=== PATIENT | male | born 1990 | race Caucasian/White ===

== ENCOUNTER 2023-08-15 00:14 | Observation (INO) | payer SELFPAY ==
[2023-08-15] VITALS (9 sets, daily range): BP systolic 127–146; BP diastolic 73–93; TEMP 97.9–99; O2SAT 93–98
[~2023-08-15] VITALS: Ht 177.8 cm; Wt 107.5 kg
[2023-08-15] MEDS: ONDANSETRON 4MG 2ML VIAL IV ONE (01:09)
[2023-08-15] MEDS: fentaNYL 100 MCG/2 ML INJECTION IV ONE ×3 (01:10→03:24)
[2023-08-15 01:18] LABS: HEMOGLOBIN 14.8 g/dl (13.5-17.5); MEAN CORPUSCULAR HEMOGLOBIN 28.8 pg (27.0-33.0); MEAN CORPUSCULAR HGB CONC 33.6 g/dl (32.0-36.5); MEAN CORPUSCULAR VOLUME 85.6 fl (80.0-96.0); PLATELET COUNT, AUTOMATED 334 10^3/uL (150-450); RED BLOOD COUNT 5.14 10^6/uL (4.30-6.10); WHITE BLOOD COUNT 14.4 10^3/uL (4.0-10.0)
[2023-08-15 01:30] LABS: INR 0.89; PARTIAL THROMBOPLASTIN TIME 24.7 SECONDS (24.8-34.2); PROTHROMBIN TIME 11.7 SECONDS (12.5-14.5)
[2023-08-15 01:43] LABS: ETHYL ALCOHOL (ETHANOL) 0.196 % (0.000-0.010)
[2023-08-15 01:45] LABS: BLOOD UREA NITROGEN 11 MG/DL (9-23); CALCIUM LEVEL 8.8 MG/DL (8.5-10.1); CARBON DIOXIDE LEVEL 23 MMOL/L (20-31); CHLORIDE LEVEL 104 MMOL/L (98-107); GLOMERULAR FILTRATION RATE > 60.0 (>60); GLUCOSE, FASTING 84 MG/DL (60-100); POTASSIUM SERUM 3.7 MMOL/L (3.5-5.1); SODIUM LEVEL 138 MMOL/L (136-145)
[2023-08-15] MEDS: NS 1,000 ML IV SCH (02:47)
[2023-08-15] MEDS ORDERED: HOME MED LIST COMPLETE! XX SCH (03:55)
[2023-08-15] MEDS ORDERED: ONDANSETRON 4MG 2ML VIAL IV PRN (04:55)
[2023-08-15] MEDS: LR 1,000 ML IV SCH ×2 (05:15→22:46)
[2023-08-15] MEDS: MORPHINE 2 MG/ML 1ML VIAL IV PRN (05:17)
[2023-08-15 07:32] LABS: AMPHETAMINES LEVEL URINE NEGATIVE (NEGATIVE); BARBITURATES URINE NEGATIVE (NEGATIVE); BENZODIAZEPINES URINE NEGATIVE (NEGATIVE); COCAINE METABOLITE URINE NEGATIVE (NEGATIVE); METHADONE URINE NEGATIVE (NEGATIVE); PHENCYCLIDINE URINE NEGATIVE (NEGATIVE)
[2023-08-15] MEDS: FOLIC ACID 1MG TAB PO SCH (07:36)
[2023-08-15] MEDS: THIAMINE 100 MG TAB PO SCH (07:37)
[2023-08-15] MEDS: MULTIVITAMINS/MINERALS THERAP 1 TAB PO SCH (07:37)
[2023-08-15 07:38] LABS: CANNABINOIDS URINE POSITIVE (NEGATIVE); OPIATES URINE POSITIVE (NEGATIVE)
[2023-08-15] MEDS: KETOROLAC 30 MG/ML 1ML VIAL IV PRN (11:43)
[2023-08-15] MEDS ORDERED: LIDOCAINE 2% 100MG/5ML SDV (FOR ANES.) As Ordered ONE (16:15)
[2023-08-15] MEDS ORDERED: ONDANSETRON 4MG 2ML VIAL As Ordered ONE (16:15)
[2023-08-15] MEDS ORDERED: MIDAZOLAM INJ 2MG/2ML VIAL As Ordered ONE (16:15)
[2023-08-15] MEDS ORDERED: fentaNYL 250 MCG/5 ML INJECTION As Ordered ONE (16:15)
[2023-08-15] MEDS ORDERED: SUGAMMADEX SODIUM 500 MG/5 ML VIAL (BRIDION) As Ordered ONE (16:15)
[2023-08-15] MEDS ORDERED: METOCLOPRAMIDE INJ 10MG/2ML VIAL As Ordered ONE (16:15)
[2023-08-15] MEDS ORDERED: KETOROLAC 60MG 2ML VIAL As Ordered ONE (16:15)
[2023-08-15] MEDS ORDERED: ROCURONIUM BROMIDE 50MG/5ML VIAL As Ordered ONE (16:15)
[2023-08-15] MEDS ORDERED: propofoL 200 MG/20 ML VIAL As Ordered ONE (16:15)
[2023-08-15] MEDS ORDERED: HYDROmorphone HCL 2MG/ML 1ML VIAL As Ordered ONE (16:15)
[2023-08-15] MEDS ORDERED: ACETAMINOPHEN 1000MG 100ML IV BAG As Ordered ONE (16:15)
[2023-08-15] MEDS ORDERED: dexmedeTOMIDine (4MCG/ML)200MCG/50ML BTL (PRECEDEX) As Ordered ONE (16:15)
[2023-08-15] MEDS ORDERED: DESFLURANE 240 ML INHALANT As Ordered ONE (16:15)
[2023-08-15] MEDS: ceFAZolin 2 GM/D5W 50 ML IV BAG As Ordered ONE (16:17)
[2023-08-15] MEDS: TRANEXAMIC ACID 100 MG/ML 10ML VIAL As Ordered ONE (16:47)
[2023-08-15] MEDS ORDERED: LABETALOL 100MG/20ML VIAL As Ordered ONE (16:53)
[2023-08-15] MEDS: VANCOMYCIN 1000MG/20ML VIAL As Ordered ONE (18:11)
[2023-08-15] MEDS ORDERED: oxyCODONE 5MG TAB PO PRN (19:10)
[2023-08-15] MEDS ORDERED: fentaNYL 100 MCG/2 ML INJECTION IV PRN (19:10)
[2023-08-15] MEDS: ONDANSETRON 4MG 2ML VIAL IV PRN (19:17)
[2023-08-15] MEDS: PROMETHAZINE 25MG/ML 1ML VIAL IV PRN (19:31)
[2023-08-15] MEDS: HEPARIN SOD (PORCINE) 5000UNITS/ML 1ML VIAL/SYRINGE SC SCH (23:54)
[2023-08-16 00:15] VITALS: BP 137/75; TEMP 98.1; O2SAT 94
[2023-08-16 01:15] VITALS: BP 135/79; TEMP 97.9; O2SAT 94
[2023-08-16 06:15] VITALS: BP 147/86; TEMP 98; O2SAT 94
[2023-08-16 07:11] LABS: HEMATOCRIT 38.8 % (42.0-52.0); MEAN CORPUSCULAR HEMOGLOBIN 28.4 pg (27.0-33.0); PLATELET COUNT, AUTOMATED 282 10^3/uL (150-450); RED BLOOD COUNT 4.51 10^6/uL (4.30-6.10); WHITE BLOOD COUNT 17.3 10^3/uL (4.0-10.0)
[2023-08-16 07:12] LABS: HEMOGLOBIN 12.8 g/dl (13.5-17.5)
[2023-08-16 07:23] LABS: ALBUMIN 3.1 G/DL (3.2-5.2); ALKALINE PHOSPHATASE 49 U/L (46-116); ALT/SGPT 35 U/L (7.0-40); AST/SGOT 35 U/L (<34); BILIRUBIN,TOTAL 0.7 MG/DL (0.3-1.2); BLOOD UREA NITROGEN 9 MG/DL (9-23); CALCIUM LEVEL 8.6 MG/DL (8.5-10.1); CARBON DIOXIDE LEVEL 29 MMOL/L (20-31); CHLORIDE LEVEL 104 MMOL/L (98-107); CREATININE FOR GFR 0.95 MG/DL (0.70-1.30); GLOMERULAR FILTRATION RATE > 60.0 (>60); GLUCOSE, FASTING 103 MG/DL (60-100); POTASSIUM SERUM 4.1 MMOL/L (3.5-5.1); SODIUM LEVEL 138 MMOL/L (136-145); TOTAL PROTEIN 5.9 G/DL (5.7-8.2)
[2023-08-16] MEDS: ASPIRIN 81MG ENTERIC TABLET PO SCH (08:18)
[2023-08-16 11:02] VITALS: BP 147/88; TEMP 97.7; O2SAT 98
[2023-08-16] MEDS ORDERED: ASPI81TAEC PO (12:14)
[2023-08-16] MEDS ORDERED: PROT20TA11 PO (12:14)
[2023-08-16] MEDS ORDERED: IBUP-1114 PO (12:14)
== END 2023-08-16 13:35 | disposition home or self-care (01) ==
LOC: M ED 00:14 → M ED INP 00:15 → M MS5PR 06:00
PROVIDERS: ADMIT Internal Medicine; ATTEND Internal Medicine
DX: S82.62XA Displaced fracture of lateral malleolus of left fibula, initial encounter for closed fracture (principal); S93.05XA Dislocation of left ankle joint, initial encounter; S92.315A Nondisplaced fracture of first metatarsal bone, left foot, initial encounter for closed fracture; S92.325A Nondisplaced fracture of second metatarsal bone, left foot, initial encounter for closed fracture; S92.335A Nondisplaced fracture of third metatarsal bone, left foot, initial encounter for closed fracture; S92.345A Nondisplaced fracture of fourth metatarsal bone, left foot, initial encounter for closed fracture; Y04.0XXA Assault by unarmed brawl or fight, initial encounter; Y92.511 Restaurant or cafe as the place of occurrence of the external cause; Y93.89 Activity, other specified; Y99.8 Other external cause status; F10.120 Alcohol abuse with intoxication, uncomplicated
CPT/HCPCS: 27792; 36415; 73564; 73590; 73600; 73610; 73630; 73700; 76000; 80048; 80053; 80307; 82077; 82306; 85027; 85610; 85730; 86850; 86900; 86901; 96372; 96374; 96375; 96376; 99285; C1713; C9290; J0131; J0665; J0690; J1100; J1170; J1885; J1920; J2250; J2405; J2550; J2765; J3010; J3370

== ENCOUNTER → 2023-09-03 | Outpatient (CLI) | payer OTHER ==
[~2023-09-03] MED LIST: ASPI81TAEC PO; IBUP-1114 PO; PROT20TA11 PO
== END ==
LOC: M SOG 07:51
PROVIDERS: ATTEND Physician Assistant
DX: S82.832D Other fracture of upper and lower end of left fibula, subsequent encounter for closed fracture with routine healing (principal)

== ENCOUNTER → 2023-09-07 | Outpatient (CLI) | payer OTHER ==
[2023-09-07 11:24] LABS: BASO # 0.1 10^3/uL (0.0-0.2); BASO % 1.1 % (0.0-1.0); EOS # 0.2 10^3/uL (0.0-0.5); EOS % 2.7 % (0.0-3.0); HEMATOCRIT 41.7 % (42.0-52.0); HEMOGLOBIN 13.5 g/dl (13.5-17.5); LYMPH # 2.7 10^3/uL (1.5-5.0); LYMPH % 30.7 % (24.0-44.0); MEAN CORPUSCULAR HEMOGLOBIN 28.4 pg (27.0-33.0); MEAN CORPUSCULAR HGB CONC 32.4 g/dl (32.0-36.5); MEAN CORPUSCULAR VOLUME 87.8 fl (80.0-96.0); MONO # 0.7 10^3/uL (0.0-0.8); MONO % 7.9 % (2.0-8.0); NEUTROPHILS % 57.1 % (36.0-66.0); PLATELET COUNT, AUTOMATED 387 10^3/uL (150-450); RED BLOOD COUNT 4.75 10^6/uL (4.30-6.10); WHITE BLOOD COUNT 8.8 10^3/uL (4.0-10.0)
[2023-09-07 11:46] LABS: CALCIUM LEVEL 8.9 MG/DL (8.5-10.1)
== END ==
LOC: M PLALAB 08:51
PROVIDERS: ATTEND Orthopaedic Surgery
DX: M25.571 Pain in right ankle and joints of right foot (principal)

== ENCOUNTER 2023-09-16 08:19 | Outpatient (RCR) | payer OTHER | END 2023-09-18 | LOC: M PT 08:19 | PROVIDERS: ATTEND Orthopaedic Surgery | DX: S82.832D Other fracture of upper and lower end of left fibula, subsequent encounter for closed fracture with routine healing (principal) ==

== ENCOUNTER → 2023-09-17 | Outpatient (CLI) | payer OTHER | LOC: M SOG 08:01 | PROVIDERS: ATTEND Physician Assistant | DX: S82.832D Other fracture of upper and lower end of left fibula, subsequent encounter for closed fracture with routine healing (principal) ==

== ENCOUNTER → 2023-10-01 | Outpatient (CLI) | payer OTHER | LOC: M SOG 09:24 | PROVIDERS: ATTEND Physician Assistant | DX: S82.832D Other fracture of upper and lower end of left fibula, subsequent encounter for closed fracture with routine healing (principal) ==

== ENCOUNTER 2023-10-15 07:00 | Outpatient (RCR) | payer OTHER | END 2023-10-18 | LOC: M PT 07:00 | PROVIDERS: ATTEND Orthopaedic Surgery | DX: S82.832D Other fracture of upper and lower end of left fibula, subsequent encounter for closed fracture with routine healing (principal) ==

== ENCOUNTER → 2023-11-12 | Outpatient (CLI) | payer OTHER | LOC: M SOG 08:05 | PROVIDERS: ATTEND Physician Assistant | DX: S82.832D Other fracture of upper and lower end of left fibula, subsequent encounter for closed fracture with routine healing (principal) ==

== ENCOUNTER 2023-11-17 07:00 | Outpatient (RCR) | payer OTHER | END 2023-11-18 | LOC: M PT 07:00 | PROVIDERS: ATTEND Orthopaedic Surgery | DX: S82.832D Other fracture of upper and lower end of left fibula, subsequent encounter for closed fracture with routine healing (principal) ==

== ENCOUNTER 2023-12-15 07:00 | Outpatient (RCR) | payer OTHER | END 2023-12-19 | LOC: M PT 07:00 | PROVIDERS: ATTEND Orthopaedic Surgery | DX: S82.832D Other fracture of upper and lower end of left fibula, subsequent encounter for closed fracture with routine healing (principal) ==

== ENCOUNTER 2023-12-22 07:30 | Outpatient (RCR) | payer OTHER | END 2024-01-18 | LOC: M PT 07:30 | PROVIDERS: ATTEND Orthopaedic Surgery | DX: S82.832D Other fracture of upper and lower end of left fibula, subsequent encounter for closed fracture with routine healing (principal) ==

== ENCOUNTER → 2024-01-14 | Outpatient (CLI) | payer OTHER | LOC: M SOG 15:21 | PROVIDERS: ATTEND Orthopaedic Surgery | DX: S82.832D Other fracture of upper and lower end of left fibula, subsequent encounter for closed fracture with routine healing (principal) ==

== ENCOUNTER → 2024-03-10 | Outpatient (CLI) | payer OTHER | LOC: M PLALAB 15:36 | PROVIDERS: ATTEND Physician Assistant | DX: S82.832D Other fracture of upper and lower end of left fibula, subsequent encounter for closed fracture with routine healing (principal) ==

== ENCOUNTER → 2024-04-28 | Outpatient (CLI) | payer OTHER | LOC: M SOG 07:56 | PROVIDERS: ATTEND Physician Assistant | DX: S82.832D Other fracture of upper and lower end of left fibula, subsequent encounter for closed fracture with routine healing (principal) ==

== ENCOUNTER → 2024-06-21 | Outpatient (CLI) | payer OTHER | LOC: M OUTALCOH 07:35 | PROVIDERS: ATTEND Psychiatry & Neurology Psychiatry | DX: Z03.89 Encounter for observation for other suspected diseases and conditions ruled out (principal) ==

== ENCOUNTER 2024-07-14 16:00 | Outpatient (RCR) | payer OTHER | END 2024-07-18 | LOC: M OUTALCOH 16:00 | PROVIDERS: ATTEND Psychiatry & Neurology Psychiatry | DX: F10.10 Alcohol abuse, uncomplicated (principal) ==

== ENCOUNTER 2024-08-16 16:00 | Outpatient (RCR) | payer OTHER | END 2024-08-17 | LOC: M OUTALCOH 16:00 | PROVIDERS: ATTEND Psychiatry & Neurology Psychiatry | DX: F10.10 Alcohol abuse, uncomplicated (principal) ==